=== PATIENT | female | born 1945 | race Caucasian/White ===

== ENCOUNTER 2019-10-30 07:56 | Emergency (ER) | payer MEDICARE ==
[2019-10-30 08:02] VITALS: RESP 18
[2019-10-30] MEDS ORDERED: TOPICAL SKIN ADHESIVE 1 EACH AMP TOPICAL ONE (08:08)
[2019-10-30] MEDS ORDERED: DIPH,PERTUS(ACELL)TETVAC-LF 0.5 ML VIAL IM ONE (08:08)
--- NOTE | 2019-10-30 08:18 | ED ---
General Adult HPI - General Chief complaint: Fall Stated complaint: fall, head lac and hand injury Time Seen by Provider: 10/30/19 08:03 Source: patient, RN notes reviewed, old records reviewed Mode of arrival: ambulatory Limitations: no limitations - History of Present Illness Initial comments: 73-year-old female presenting status post fall with head injury and left hand injury. Patient was walking this morning, tripped and fell striking both her left hand and left forehead. There is no loss of consciousness. Patient is complaining predominantly of left hand pain. She is not on any anticoagulation. She denies any preceding symptoms, no syncope, no chest pain, no palpitations. Fall was mechanical. No lower extremity pain. Patient is uncertain of her tetanus status. - Related Data Allergies Allergy/AdvReac Type Severity Reaction Status Date / Time clindamycin Allergy Rash/Hives Verified 10/30/19 08:02 Penicillins Allergy Rash/Hives Verified 10/30/19 08:02 Review of Systems ROS Statement: Those systems with pertinent positive or pertinent negative responses have been documented in the HPI. ROS Other: All systems not noted in ROS Statement are negative. Past Medical History Past Medical History: No Reported History Past Surgical History: Hysterectomy Smoking Status: Never smoker Past Alcohol Use History: None Reported Past Drug Use History: None Reported General Exam Limitations: no limitations General appearance: alert, in no apparent distress Head exam: Present: normocephalic, other (2 cm superficial laceration above the left orbital ridge) Eye exam: Present: normal appearance, PERRL, EOMI, periorbital swelling ENT exam: Present: normal exam Neck exam: Present: normal inspection, full ROM. Absent: tenderness, meningismus Respiratory exam: Present: normal lung sounds bilaterally. Absent: respiratory distress, wheezes Cardiovascular Exam: Present: regular rate, normal rhythm, systolic murmur GI/Abdominal exam: Present: soft. Absent: distended, tenderness, guarding Extremities exam: Present: normal inspection, tenderness (Pain at the base of the first digit left hand, thenar eminence. No external signs of trauma. Normal range of motion. No snuffbox tenderness. Range of motion at the wrist is normal.), normal capillary refill Neurological exam: Present: alert, oriented X3, CN II-XII intact, normal gait. Absent: motor sensory deficit Psychiatric exam: Present: normal affect, normal mood Skin exam: Present: warm, dry Course Vital Signs 10/30/19 07:57 Temperature 98.1 F Pulse Rate 93 Respiratory 18 Rate Blood Pressure 169/74 O2 Sat by Pulse 98 Oximetry Procedures - Laceration Laceration #1 Consent Obtained: verbal consent Indication: laceration Site: face Size (cm): 2 Description: linear, clean Depth: simple, single layer Type of Sutures: other (dermabond) Patient Tolerated Procedure: well Medical Decision Making - Medical Decision Making 73-year-old female status post mechanical fall with superficial laceration arou nd the left orbital ridge 2 cm in length. Second complaint of left hand pain with no external signs of trauma, no significant deformity noted, normal neurovascular exam. X-ray performed of the left hand which is negative for acute bony abnormality. CT brain negative for intracranial hemorrhage showing a 3 x 3 meningioma, with no surrounding edema, calcified. Patient is given outpatient neurology follow-up as well as primary care follow-up to arrange for neurosurgical follow-up. CT cervical spine is negative for fracture subluxation. Patient's tetanus is updated and laceration is repaired with Dermabond. Disposition Clinical Impression: Fall, Closed head injury, Facial laceration, Hand contusion, Meningioma Disposition: HOME SELF-CARE Condition: Good Instructions (If sedation given, give patient instructions): Laceration (ED), Contusion in Adults (ED), Facial Contusion (ED) Additional Instructions: Please follow up with your primary care physician as well as neurology regarding possible meningioma. Is patient prescribed a controlled substance at d/c from ED?: No Referrals: Alfonzo Vu MD [Primary Care Provider] - 1-2 days Brandon Kaur MD [REFERRING] - 1-2 days
--- NOTE | 2019-10-30 09:00 | XR ---
Left hand HISTORY: Trauma and pain 3 views of the left hand Bone mineralization is reduced. 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 At the carpometacar pal joint of the first digit there is joint space loss, subchondral sclerosis, hypertrophic change, o ssific density present laterally to the joint is well-corticated and not likely acute. Arthropathy al so present at the interphalangeal joint of the first digit, distal interphalangeal joint of the secon d digit. At the second digit distal interphalangeal joint there is a calcification laterally within t he soft tissues, calcification is also present at the volar aspect of the distal portion of the proxi mal phalanx of the fourth digit of left hand. Small calcific density dorsal to the wrist is well-cuong icated and not felt likely to be acute. IMPRESSION: No acute fracture or dislocation.
--- NOTE | 2019-10-30 09:00 | CT ---
EXAMINATION TYPE: CT brain cspine wo con DATE OF EXAM: 10/30/2019 COMPARISON: NONE HISTORY: Head injury. Head and neck pain. CT DLP: 1420.4 mGycm. Automated Exposure Control for Dose Reduction was Utilized. TECHNIQUE: CT scan of the head and cervical spine are performed without contrast. FINDINGS: There is a calcified extra-axial left parafalcine mass at the skull vertex measuring 3.1 x 3.0 cm. There is only mild mass effect on the adjacent gyri. No vasogenic edema. Very small dural re flection seen in the left frontal region on image 26 with no hyperattenuation and not reproduced on c oronal or sagittal images. There is no acute intracranial hemorrhage nor midline shift identified. T he ventricles and sulci are within normal limits in size for the patient's age. Very few patchy areas of hypoattenuation are seen in the periventricular and subcortical white matter most commonly on the basis of chronic microangiopathy. The globes are intact. Mild mucosal thickening is seen in the ethm oid and frontal sinuses. Frontal sinuses are hypoplastic. Remaining visualized portions of the parana nhan sinuses and mastoid air cells are well aerated. Cervical spine is visualized in its entirety from C1 through upper thoracic levels. Mild diffuse oss eous demineralization. Multilevel malalignment with grade 1 anterolisthesis of C3 on C4 and C4 on C5 as well as minimal retrolisthesis of C5 on C6 and C6 on C7 and grade 1 anterolisthesis of C7 on T1 an d T1 on T2. Facets however maintain normal alignment. Multilevel intervertebral disc space narrowing, posterior disc osteophyte complexes, endplate sclerosis, anterior osteophytes, uncovertebral hypertr ophy and facet arthropathy are seen. Prevertebral soft tissue appears within normal limits. The C1-C 2 articulation is unremarkable. Spinal canal is limited on CT. IMPRESSION: 1. There is no acute fracture of the cervical spine. However multilevel malalignment is seen with mod erate multilevel degenerative disc disease. Malalignment is likely on a degenerative basis. 2. No acute intracranial hemorrhage, mass effect, or midline shift is seen. 3. Left parafalcine calcified extra-axial mass with CT characteristics of a meningioma measuring up t o 3.1 cm. Only minimal surrounding mass effect on the adjacent gyri.
[2019-10-30 09:33] VITALS: BP 158/97; PULSE 86; TEMP 97.7
== END 2019-10-30 09:31 | disposition home or self-care (01) ==
LOC: EC 07:56
DX: S01.81XA Laceration without foreign body of other part of head, initial encounter (principal); D32.9 Benign neoplasm of meninges, unspecified; S60.222A Contusion of left hand, initial encounter; Z23 Encounter for immunization; Z88.0 Allergy status to penicillin; Z88.1 Allergy status to other antibiotic agents; W01.198A Fall on same level from slipping, tripping and stumbling with subsequent striking against other object, initial encounter
CPT/HCPCS: 12011; 70450; 72125; 90471; 90715; 99284

== ENCOUNTER → 2019-12-31 | Outpatient (CLI) | payer MEDICARE ==
--- NOTE | 2019-12-31 10:36 | MR ---
EXAMINATION TYPE: MR brain wo/w con DATE OF EXAM: 12/31/2019 COMPARISON: CT 10/24/20152019 HISTORY: Brain mass TECHNIQUE: Multiplanar, multisequence images of the brain and brainstem is performed without and with IV contras t, utilizing 7 mL intravenous Gadavist . FINDINGS: Diffusion weighted images demonstrate no evidence of a recent infarct or other diffusion ab normality. Mild generalized degenerative change. Scattered areas of focal abnormal signal the white m atter bilaterally. Midline structures demonstrate normal morphology. The craniocervical junction appears within normal limits. Post contrast images demonstrate a large left parasagittal extra-axial mass which is somewha t heterogeneous measuring 2.8 x 2.7. Changes of chronic sinusitis. IMPRESSION: 1. There is a 2.8 cm extra-axial heterogeneous mass involving the left cerebral hemisphere parasagitt al to the left with compression of the adjacent cortex. Most likely related to a partially calcified meningioma. Other etiologies not entirely excluded correlate clinically. 2. Degenerative and nonspecific white matter changes most typical of remote microvascular ischemia
== END | disposition home or self-care (01) ==
LOC: RADMRIMAIN 09:06
PROVIDERS: ATTEND Psychiatry & Neurology Neurology
DX: G93.89 Other specified disorders of brain (principal); R90.89 Other abnormal findings on diagnostic imaging of central nervous system; I67.82 Cerebral ischemia; G93.5 Compression of brain; D43.0 Neoplasm of uncertain behavior of brain, supratentorial; R94.02 Abnormal brain scan
CPT/HCPCS: 70553; A9585

== ENCOUNTER → 2021-12-11 | Outpatient (CLI) | payer MEDICARE ==
--- NOTE | 2021-12-11 14:21 | MR ---
EXAMINATION TYPE: MR brain wo/w con DATE OF EXAM: 12/11/2021 COMPARISON: Prior MRI brain December 31, [address] brain October 30, 2019 HISTORY: Hx of meningioma, F/U TECHNIQUE: Multiplanar, multisequence images of the brain and brainstem is performed without and with IV contras t, utilizing 7 mL intravenous Gadavist . FINDINGS: Diffusion weighted images demonstrate no evidence of a recent infarct or other diffusion ab normality. The ventricular system and cisternal spaces are normal in size and appearance. The brain volume is age appropriate. Some small scattered foci of T2 hyperintensity throughout the white matter bilaterally are redemonstrated. Approximately 25-30 scattered lesions again seen. The craniocervical junction remained within normal limits. Post contrast images redemonstrate oval w ell-circumscribed enhancing extra-axial mass high left parietal subdural region just off the midline measures 3.2 x 2.5 x 2.6 cm axial image 26 and coronal image 25 corresponding to calcified lesion on CT consistent with meningioma. No significant change in size or appearance. Local mass effect redemon strated. No new enhancing masses. The dural venous sinuses remain patent. Persistent mild to moderate mucosal thickening involving the frontal and bilateral ethmoid sinuses and inferior bilateral maxill linda sinuses slightly more prominent from prior MRI. IMPRESSION: Stable 3.2 cm high left parieto-occipital meningioma with local mass affect accounting fo r technical differences. Slightly more prominent chronic paranasal sinus disease noted. Stable mild t o moderate chronic small vessel ischemic change.
== END | disposition home or self-care (01) ==
LOC: RADMRIMAIN 12:26
PROVIDERS: ATTEND Psychiatry & Neurology Neurology
DX: R90.89 Other abnormal findings on diagnostic imaging of central nervous system (principal)
CPT/HCPCS: 70553; A9585

== ENCOUNTER → 2023-11-28 | Outpatient (CLI) | payer MEDICARE ==
--- NOTE | 2023-11-28 12:05 | MR ---
EXAMINATION TYPE: MR brain wo/w con DATE OF EXAM: 11/28/2023 10:52 AM CLINICAL INDICATION:Female, 78 years old with history of R90.89 OTH ABNORMAL FINDINGS ON DIAGNOSTIC I MAGING; PHH, Hx of meningioma, F/U. COMPARISON: 12/11/2021 TECHNIQUE: Multi planar, multi sequence imaging was performed through the brain including: T1, T2, In version recovery, susceptibility weighted imaging and gradient echo imaging and Diffusion weighted im aging. The patient was then given intravenous contrast and multi planar, T1 fat-saturation images wer e obtained. IV Contrast: 7 cc Gadavist FINDINGS: Redemonstration of left posterior falx extra-axial mass measuring up to 31 x 27 mm not sign ificantly changed from prior. Lesion continues to demonstrate postcontrast enhancement with dural tigre l visualized. There is susceptibility artifact within this lesion correlating to CT finding of calcif ication. The webb-white junctions, ventricular system, basal cisterns appear unremarkable. Diffusion -weighted imaging shows no evidence of restricted diffusion to suggest acute/subacute infarct. Intrac ranial arterial flow voids are maintained. Midline structures show no abnormality. Scattered foci of high T2 signal intensity are seen within the periventricular white matter. The susceptibility weighte d images do not reveal any evidence for micro-hemorrhage. After administration of gadolinium, no maurisio tional abnormal enhancement is seen. The bone marrow signal is within normal limits. Paranasal sinuses and mastoid air cells: Moderate scattered paranasal sinus disease. Visualized orbits: Bilateral aphakia IMPRESSION: 1. Stable suspected left posterior extra-axial lesion that represent a meningioma. No evidence of int ra-axial mass, acute/subacute infarct, or abnormal enhancement. 2. Nonspecific white matter changes, likely related to small vessel ischemic disease. 3. Moderate paranasal sinus disease.
== END | disposition home or self-care (01) ==
LOC: RADMRIMAIN 09:51
PROVIDERS: ATTEND Psychiatry & Neurology Neurology
DX: R90.89 Other abnormal findings on diagnostic imaging of central nervous system (principal); G93.9 Disorder of brain, unspecified; Z87.59 Personal history of other complications of pregnancy, childbirth and the puerperium
CPT/HCPCS: 70553; A9585

== ENCOUNTER → 2024-01-18 | Outpatient (CLI) | payer MEDICARE ==
--- NOTE | 2024-02-08 22:20 | MM ---
Reason for Exam: Screening (asymptomatic). Last mammogram was performed 7 year(s) and 8 month(s) ago. Patient History: Menarche at age 11. First Full-Term at age 17. Left ovary removed at age 48. Right ovary removed at age 48. Hysterectomy at age 48. Postmenopausal. Estrogen for 17 years from age 50 until age 67. Risk Values: Lalita 5 year model risk: 1.2%. NCI Lifetime model risk: 2.0%. Prior Study Comparison: 06/27/2013 Right Diagnostic Mammogram, [facility]. 07/02/2014 Bilateral Diagnostic Mammogram, [facility]. 05/25/2016 Bilateral Screening Mammogram, [facility]. Tissue Density: The breasts are heterogeneously dense, which may obscure small masses. Findings: Analyzed By CAD. Nodular asymmetric density subareolar left breast on the CC view for which further evaluation is recommended. Otherwise, no significant change. Overall Assessment: Incomplete: need additional imaging evaluation, BI-RAD 0 Management: Special View Mammogram of the left breast. Diagnostic Breast Ultrasound of the left breast. . [facility] will attempt to contact patient to return for supplemental views and ultrasound if indicated. Electronically signed and approved by: Davonte Villalobos M.D. Radiologist
== END | disposition home or self-care (01) ==
LOC: RADBDWWP 12:00
PROVIDERS: ATTEND Internal Medicine Geriatric Medicine
DX: Z12.31 Encounter for screening mammogram for malignant neoplasm of breast (principal); R92.333 Mammographic heterogeneous density, bilateral breasts; Z78.0 Asymptomatic menopausal state; Z90.722 Acquired absence of ovaries, bilateral
CPT/HCPCS: 77063; 77067

== ENCOUNTER → 2024-02-15 | Outpatient (CLI) | payer MEDICARE ==
--- NOTE | 2024-02-15 10:24 | MM ---
Reason for Exam: Additional evaluation requested from abnormal screening. Last screening mammogram was performed less than 1 month ago. Patient History: Menarche at age 11. First Full-Term at age 17. Left ovary removed at age 48. Right ovary removed at age 48. Hysterectomy at age 48. Postmenopausal. Estrogen for 17 years from age 50 until age 67. Risk Values: Lalita 5 year model risk: 1.2%. NCI Lifetime model risk: 2.0%. Prior Study Comparison: 07/02/2014 Bilateral Diagnostic Mammogram, [facility]. 05/25/2016 Bilateral Screening Mammogram, [facility]. 01/18/2024 Bilateral MG 3D screening mammo w/cad, [facility]. Tissue Density: Left: The breasts are heterogeneously dense, which may obscure small masses. Findings: Analyzed By CAD. No evidence for persistent mass. No distortion present. No skin thickening. Overall Assessment: Negative, BI-RAD 1 Management: Screening Mammogram of both breasts in 1 year. . Results were given to the patient verbally at the time of exam. Patient should continue monthly self-breast exams. A clinical breast exam by your physician is recommended on an annual basis. This exam should not preclude additional follow-up of suspicious palpable abnormalities. Note on Lalita scores and lifetime risk: 1. A Lalita score greater than 3% is considered moderate risk. If this is the case, consider specialist referral to assess eligibility for a risk reducing agent. 2. If overall lifetime risk for the development of breast cancer is 20% or higher, the patient may qualify for future screening with alternating mammogram and breast MRI. Electronically signed and approved by: Vidal Becker M.D. Radiologis
== END | disposition home or self-care (01) ==
LOC: RADMAMWWP 09:48
PROVIDERS: ATTEND Internal Medicine Geriatric Medicine
DX: R92.8 Other abnormal and inconclusive findings on diagnostic imaging of breast
CPT/HCPCS: 77061; 77065

== ENCOUNTER → 2024-06-25 | Outpatient (CLI) | payer MEDICARE ==
--- NOTE | 2024-06-26 19:31 | MR ---
EXAMINATION TYPE: MR brain wo/w con DATE OF EXAM: 06/25/2024 5:28 PM COMPARISON: MRI 11/28/2023. CLINICAL INDICATION: Female, 78 years old with history of G45.9 TIA; PHH, TIA, episode of reading and not able to understand, Headaches, Hx meningioma x5 years, TECHNIQUE: Multi planar, multi sequence imaging was performed through the brain including: T1, T2, In version recovery, susceptibility weighted imaging and gradient echo imaging and Diffusion weighted im aging. The patient was then given intravenous contrast and multi planar, T1 fat-saturation images wer e obtained. IV Contrast: 7 mL Gadobutrol FINDINGS: Fractionally larger left posterior falx extra-axial mass measuring up to measuring up to 36 x 25 mm, previously 35 x 21 mm. Lesion continues to demonstrate postcontrast enhancement with dural tail visua lized. There is susceptibility artifact within this lesion correlating to CT finding of calcification . The webb-white junctions, ventricular system, basal cisterns appear unremarkable. Diffusion-weight ed imaging shows no evidence of restricted diffusion to suggest acute/subacute infarct. Intracranial arterial flow voids are maintained. Midline structures show no abnormality. Scattered foci of high T2 signal intensity are seen within the periventricular white matter. The susceptibility weighted image s do not reveal any evidence for micro-hemorrhage. After administration of gadolinium, no additional abnormal enhancement is seen. The bone marrow signal is within normal limits. Paranasal sinuses and mastoid air cells: Mild to moderate scattered paranasal sinus disease culture p reviously moderate.r Visualized orbits: Bilateral aphakia IMPRESSION: 1. Stable to fractionally larger left posterior extra-axial lesion that represent a meningioma. No ev idence of intra-axial mass, acute/subacute infarct, or abnormal enhancement. 2. Nonspecific white matter changes, likely related to small vessel ischemic disease. 3. Mild to moderate paranasal sinus disease. [facility], , 06/26/2024 7:29 PM
== END | disposition home or self-care (01) ==
LOC: RADMRIMAIN 16:23
PROVIDERS: ATTEND Internal Medicine Geriatric Medicine
DX: G45.9 Transient cerebral ischemic attack, unspecified (principal); R90.82 White matter disease, unspecified; J34.89 Other specified disorders of nose and nasal sinuses; Z86.73 Personal history of transient ischemic attack (TIA), and cerebral infarction without residual deficits
CPT/HCPCS: 70553; A9585

== ENCOUNTER → 2024-07-02 | Outpatient (CLI) | payer MEDICARE ==
--- NOTE | 2024-07-02 14:59 | US ---
EXAMINATION TYPE: US carotid duplex BILAT DATE OF EXAM: 07/02/2024 COMPARISON: NONE CLINICAL INDICATION: Female, 78 years old with history of G45.9 TIA; Patient states having a stroke x 1.5 weeks ago with history of speech abnormality Additional History: TECHNIQUE: Grayscale, color Doppler and spectral Doppler evaluation of the bilateral carotid systems and vertebral arteries. Indirect Doppler criteria was utilized. FINDINGS: EXAM MEASUREMENTS: RIGHT: Peak Systolic Velocity (PSV) cm/sec ----- Right CCA: 58.3 ----- Right ICA: 139.8 ----- Right ECA: 66.2 ICA/CCA ratio: 2.4 RIGHT: End Diastole cm/sec ----- Right CCA: 11.3 ----- Right ICA: 35.3 ----- Right ECA: 0.0 LEFT: Peak Systolic Velocity (PSV) cm/sec ----- Left CCA: 60.2 ----- Left ICA: 116.1 ----- Left ECA: 51.9 ICA/CCA ratio: 1.9 LEFT: End Diastole cm/sec ----- Left CCA: 12.5 ----- Left ICA: 35.4 ----- Left ECA: 0.0 VERTEBRALS (direction of flow): Right Vertebral: Antegrade Left Vertebral: Antegrade Rhythm: Normal COUNSELOR/ART THERAPIST NOTES: Bilateral wall thickening. Elevated right distal ICA velocity. Color Doppler imaging shows patency with blood flow throughout the carotid artery. Spectral waveforms are within normal limits. IMPRESSION: Some increased velocities right ICA may be due to turbulent flow or could indicate a moderate (50-69% ) stenosis. No hemodynamically significant internal carotid artery stenosis on either side. Criteria for Assigning % of Stenosis / Diameter reduction (Estimation based on the indirect measurements of the internal carotid artery velocities (ICA PSV). 1. Normal (no stenosis)=ICA PSV < 125 cm/s: ratio < 2.0: ICA EDV<40 cm/s. 2. Less than 50% stenosis=ICA PSV < 125 cm/s: ratio < 2.0: ICA EDV<40 cm/s. 3. 50 to 69% stenosis=ICA PSV of 125 to 230 cm/s: ration 2.0 ? 4.0: ICA EDV 40-100 cm/s. 4. Greater than 70% stenosis to near occlusion= ICA PSV > 230 cm/s: ratio > 4.0: ICA EDV > 100 cm/s. 5. Near occlusion= ICA PSV velocities may be low or undetectable: variable ratio and ICA EDV. 6. Total occlusion=unable to detect flow. [facility], Workstation: [facility], 07/02/2024 2:57 PM
== END | disposition home or self-care (01) ==
LOC: RADUSWWP 12:16
PROVIDERS: ATTEND Internal Medicine Geriatric Medicine
DX: G45.9 Transient cerebral ischemic attack, unspecified (principal)
CPT/HCPCS: 93880